=== PATIENT | female | born 1965 | race Caucasian/White ===

== ENCOUNTER → 2016-10-01 | Outpatient (CLI) | payer OTHER ==
[~2016-10-01] MED LIST: EVENCAP2 PO; HYZA50TA2 PO; IBUP800T23 PO; LEXA5TAB PO; PRAV40TA2 PO; PREV30CA36 PO; RANI150 PO; TAB-TAB PO
--- NOTE | 2016-10-01 09:27 | RADRPT ---
EXAM DATE/TIME: 10/01/2016 00:00 [place] COMPARISON: No previous studies available for comparison. OUTSIDE STUDY REVIEWED: INDICATIONS : CT guided biopsy left neck mass FINDINGS: Biopsy of adenopathy in the left neck is requested. Review of the PET scan demonstrates only low leve l activity involving the left neck nodes. There is increased activity at the base of the tongue which may reflect prominent lymphoid tissue though there is increased activity in the nasopharynx as well and direct visualization is recommended. CONCLUSION: 1. No target for biopsy. Please see above. Arley Reddy MD on October 01, 2016 at 9:21 Board Certified Radiologist. This report was verified electronically.
== END ==
LOC: HRAD 08:54
PROVIDERS: ATTEND Surgery
DX: R59.0 Localized enlarged lymph nodes (principal)
CPT/HCPCS: 76140